=== PATIENT | female | born 1975 | race Caucasian/White ===

== ENCOUNTER 2024-04-22 15:10 | Outpatient (CLI) | payer OTHER, SELFPAY ==
--- OUTSIDE RECORDS SUMMARY | 2024-04-22 15:13 | XMS_ITS | Clinical Summary ---
Author Organization [facility] Address [place], [place] [address] Care Team Providers Care Supply Officer Name Role Phone Unavailable Primary Care Provider Unavailabl e Allergies No known active allergies Medications No known medications Active Problems Problem Noted Date Diagnosed Date Pap smear for cervical cancer screening 06/06/20 21 Overview (07/04/2021): 05/2021 NIL/HPV negative plan: Pap/HPV due 05/2026 Skin lesion 12/15/2011 IBS (irritable bowel syndrome) 12/15/2011 Thyroid nodule 04/10/2008 Overview (04/10/2008): Biopsy 1999 showing benign colloid nodule Environmental allergies 04/10/2008 Overview (04/10/2008): Dust mites. Tried allergy shots not much help Immunizations Name Administration Dates Next Due COVID-19 vaccine ([employer] 30mcg/0.3mL) P F, MDV 12/23/2020,12/02/2020 Hepatitis A (Adult) 03/21/2007 Influenza, IIV3 (Age >=3 years) 03/30/2005 Td (Age >=7 Years) 02/24/2000 Tdap 12/15/2011 Typhoid (injectable) 03/21/2007 Family History Medical History Relation Name Comments Hypertension Father Cancer-breast Maternal Aunt Diabetes Maternal Grandfather Good Health Mother Other Paternal Grandfather cancer Cancer-breast Paternal Grandmother Relation Name Status Comments Father Alive Maternal Aunt Maternal Grandfather Mother Alive Paternal Grandfather Paternal Grandmother Social History Tobacco Use Types Packs/Day Years Used Date Smoking Tobacco: Never Smokeless Tobacco: Never Tobacco Cessation:Counseling Given: Yes Alcohol Use Standard Drinks/Week Comments Yes 2.5 (1 standard drink = 0.6 oz p ure alcohol) glass of wine every weekend Social Connections Answer Date Recorded Frequency of Communication with Friends and Fami ly Not on file 06/07/2021 Financial Resource Strain Answer Date R ecorded Difficulty of Paying Living Expenses Not on file 06/07/2021 Difficulty of Paying Living Expenses Not on file 06/07/2021 Sex and Gender Information Value Date Recorded Sex Assigned at Not on file Gender Identity Not on file Sexual Orientation Not on file Obstetrics History Para Term AB IAB SAB Ectopic Multiple Livin g Live Births 2 2 2 0 0 0 0 0 0 2 2 Date Outcome GA Total Labor Labor/2nd/3rd Weight Sex Type Anes PTL Cheri A1 A5 Name Clin Term Vag Living Term Vag Living Last Filed Vital Signs Vital Sign Reading Time Taken Comments Blood Pressure 135/76 06/07/2021 7:42 AM [facility] Pulse 71 06/07/2021 7:42 AM [employer] Temperature 36.9 ??C (98.4 ??F) 01/04/2016 8:07 AM CD T Respiratory Rate - - Oxygen Saturation 100% 06/07/2021 7:42 AM [employer] Inhaled Oxygen Concentration - - Weight 62.1 kg (137 lb) 06/07/2021 7:42 AM [employer] Height 170.2 cm (5' 7.01) 06/07/2021 7:42 AM CS T Body Mass Index 21.45 06/07/2021 7:42 AM [employer] Plan of Treatment Health Maintenance Due Date Last Done Comments HIV for age 15-65 1990 Hepatitis C screening for age 18-79 1993 Depression screening for age 12+ 02/01/2017 02/02/2016 Colonoscopy through age 75 01/03/2020 Lipids for age 45-75 01/03/2020 Tetanus booster 12/14/2021 12/15/2011, 02/24/2000 BMI (ht and wt on same day) for age 18+ 06/07/2022 06/07/2021, 02/02/2016, 01/04/2016 Mammogram for age 45-75 06/07/2022 06/07/20 21, 04/13/2016, 04/06/2016 COVID-19 vaccine series ( season) 2024 12/23/2020, 12/02/2020 Influenza for age 9-49 02/10/2024 03/30/2005 Pap test for age 21-65 06/07/2026 , 06/07/2021, 02/02/2016, Additional history exists Tdap Completed 12/15/2011 Pneumococcal series for age 6-64 Aged Out No longer eligible based on patient's age to complete this topic Procedures Procedure Name Priority Date/Time Associated Diagnosis Comments XR MAMMO FERNANDA BILAT DIAG Routine 06/07/2021 2:22 PM [employer] Breast lump HPV HIGH RISK Routine 06/07/2021 8:06 AM [employer] Screening for cervical cancer from Last 3 Months or Most Recently Relevant to Health Maintenance Results * XR MAMMO FERNANDA BILAT DIAG (06/07/2021 2:22 PM [employer]) Anatomical Region Laterality Modality BREASTS, Breast Left, Breast Right Bilateral Mammography 06/07/2021 2:46 PM [facility] Impressions 06/07/2021 3:35 PM [employer] Benign fibrocystic changes LEFT breast. No evidence of malignancy. RECOMMENDATIONS: Annual BILATERAL screening mammography. BI-RADS Category 2: Benign Results and recommendations discussed with the patient. Dictated by: Theo Whiteside MD @06/07/2021 2:46:03 PM/CRL:pjt PATIENTS: You will also receive a letter with your examination results in an easy to read format. ??If you have questions about your results, please contact your referring provider. Narrative 06/07/2021 3:35 PM [employer] For Patients: As a result of the 21st Century Cures Act, medical imaging exams and procedure reports are released immediately into your electronic medical record. ??You may view this report before your referring provider. ?? If you have questions, please contact your health care provider. DIAGNOSTIC BILATERAL MAMMOGRAM WITH COMPUTER-AIDED DETECTION WITH TOMOSYNTHESIS, 06/07/2021 LEFT BREAST ULTRASOUND, 06/07/2021 CLINICAL HISTORY: LEFT breast lumps. COMPARISON: 04/13/2016, 04/06/2016. TECHNIQUE: Digital BILATERAL mammogram in four projections. Real-time ultrasound imaging of LEFT breast with imaging documentation. BREAST COMPOSITION: The breasts are heterogeneously dense, which may obscure small masses. ?? FINDINGS: BILATERAL 3D CC and 3D MLO mammogram submitted. Ovoid densities are present within the LEFT breast corresponding to the areas of palpable concern. Mild fibrocystic changes RIGHT breast. No suspicious masses or architectural distortion. Targeted LEFT breast ultrasound performed in the areas of clinical concern. At 6 o'clock 4 cm from the nipple, there is a simple anechoic cyst measuring 3.5 x 3.0 x 2.5 cm. A smaller simple cyst is present at 3 o'clock 4 cm from the nipple measuring 2.0 x 1.6 x 2.0 cm. Saba Hernandez DO MAMMO * HPV HIGH RISK (06/07/2021 8:06 AM [employer]) TYPE 16 Negative Negative 06/09/2021 4:51 PM [employer] [facility] TYPE 18 Negative Negative 06/09/2021 4:51 PM [employer] [facility] OTHER HIGH RISK TYPES Negative Negative 06/09/2021 4:51 PM [employer] [facility] Other (Cervical) Non-Blood / Unknown 06/07/2021 8:06 AM [facility] 06/07/2021 4:07 PM [employer] Narrative [facility] - 06/09/2021 4:51 PM [employer] HPV types 16, 18, 31, 33, 35, 39, 45, 51, 52, 56, 58, 59, 66 and 68 DNA were undetectable or below the pre-set threshold. Methodology: [employer] Chip 4800 HPV Test Saba Hernandez DO MICROBIOLOGY [facility] [address] [place] [address], [place] from Last 3 Months or Most Recently Relevant to Health Maintenance
== END 2024-04-22 15:11 | disposition home or self-care (01) ==
PROVIDERS: PCP Family Medicine; Visit Provider Family Medicine
DX: Z13.1 Encounter for screening for diabetes mellitus (principal); Z13.6 Encounter for screening for cardiovascular disorders
CPT/HCPCS: 80061; 82947

== ENCOUNTER 2024-04-30 07:34 | Outpatient (CLI) | payer OTHER, SELFPAY ==
--- OUTSIDE RECORDS SUMMARY | 2024-04-30 07:36 | XMS_ITS | Clinical Summary ---
Author Organization [facility] Address [place], [place] [address] Care Team Providers Care Technical Programs Manager Name Role Phone Unavailable Primary Care Provider [...] Name Administration Dates Next Due COVID-19 vaccine ([employer] 30mcg/0.3mL) P F, MDV 12/23/2020,12/02/2020 Hepatitis A [...] Comments Blood Pressure 135/76 06/07/2021 7:42 AM [facility] Pulse 71 06/07/2021 7:42 AM [facility] Temperature 36.9 C (98.4 F) 01/04/2016 8:07 AM CDT Respiratory Rate - - Oxygen Saturation 100% 06/07/2021 7:42 AM [facility] Inhaled Oxygen Concentration - - Weight 62.1 kg (137 lb) 06/07/2021 7:42 AM [facility] Height 170.2 cm (5' 7.01) 06/07/2021 7:42 AM CS T Body Mass Index 21.45 06/07/2021 7:42 AM [facility] Plan of Treatment Health Maintenance Due Date [...] FERNANDA BILAT DIAG Routine 06/07/2021 2:22 PM [facility] Breast lump HPV HIGH RISK Routine 06/07/2021 8:06 AM [facility] Screening for cervical cancer from Last 3 Months or Most Recently Relevant to Health Maintenance Results * XR MAMMO FERNANDA BILAT DIAG (06/07/2021 2:22 PM [facility]) Anatomical Region Laterality Modality BREASTS, Breast Left, Breast Right Bilateral Mammography 06/07/2021 2:46 PM [facility] Impressions 06/07/2021 3:35 PM [facility] Benign fibrocystic changes LEFT breast. No evidence of malignancy. RECOMMENDATIONS: Annual BILATERAL screening mammography. BI-RADS Category 2: Benign Results and recommendations discussed with the patient. Dictated by: Theo Whiteside MD @06/07/2021 2:46:03 PM/CRL:nildat PATIENTS: You will also receive a letter with your examination results in an easy to read format. If you have questions about your results, please contact your referring provider. Narrative 06/07/2021 3:35 PM [facility] For Patients: As a result of the 21st Century Cures Act, medical imaging exams and procedure reports are released immediately into your electronic medical record. You may view this report before your referring provider. If you have questions, please contact your health care provider. DIAGNOSTIC BILATERAL MAMMOGRAM WITH COMPUTER-AIDED DETECTION WITH TOMOSYNTHESIS, 06/07/2021 LEFT BREAST ULTRASOUND, 06/07/2021 CLINICAL HISTORY: LEFT breast lumps. COMPARISON: 04/13/2016, 04/06/2016. TECHNIQUE: Digital BILATERAL mammogram in four projections. Real-time ultrasound imaging of LEFT breast with imaging documentation. BREAST COMPOSITION: The breasts are heterogeneously dense, which may obscure small masses. FINDINGS: BILATERAL 3D CC and 3D MLO [...] * HPV HIGH RISK (06/07/2021 8:06 AM [facility]) TYPE 16 Negative Negative 06/09/2021 4:51 PM [facility] TYPE 18 Negative Negative 06/09/2021 4:51 PM [facility] OTHER HIGH RISK TYPES Negative Negative 06/09/2021 4:51 PM [facility] Other (Cervical) Non-Blood / Unknown 06/07/2021 8:06 AM [facility] 06/07/2021 4:07 PM [facility] Narrative [facility] - 06/09/2021 4:51 PM [facility] HPV types 16, 18, 31, 33, 35, 39, 45, 51, 52, 56, 58, 59, 66 and 68 DNA were undetectable or below the pre-set threshold. Methodology: [employer] Chip 4800 HPV Test Saba Hernandez DO [facility]BIOLOGY [facility] [address] [place] [address], [place] from Last 3 Months or Most Recently Relevant to Health Maintenance
--- NOTE | 2024-04-30 07:45 | CRLHL7_ITS ---
For Patients: As a result of the Century Cures Act, medical imaging exams and procedure reports are released immediately into your electronic medical record. You may view this report before your referring provider. If you have questions, please contact your health care provider. BILATERAL SCREENING MAMMOGRAM WITH COMPUTER-AIDED DETECTION AND TOMOSYNTHESIS TECHNIQUE: CC and MLO views were obtained. These mammographic images have been obtained using full-field digital technique. These mammographic images were interpreted with the benefit of computer-aided detection. Breast Tomosynthesis was used in this interpretation. COMPARISON FILM: 06/07/21, 04/13/16, 04/06/16. FINDINGS: The breasts are extremely dense, which lowers the sensitivity of mammography IMPRESSION: There is no radiographic evidence for malignancy. ASSESSMENT: BI-RADS Category 2: Benign RECOMMENDATION: Routine screening mammogram in 1 year. A lay language report of this examination will be provided to the patient. Theo Whiteside M.D. Diagnostic Radiologist [email or web address] LAINA/[email or web address] gordon/Dictated by: Theo Whiteside MD @ 05/01/2024 10:52:00 AM (Electronically Signed)
== END 2024-04-30 07:35 | disposition home or self-care (01) ==
LOC: MAMMO 07:34
PROVIDERS: PCP Family Medicine; Visit Provider Family Medicine
DX: Z12.31 Encounter for screening mammogram for malignant neoplasm of breast (principal); R92.343 Mammographic extreme density, bilateral breasts
CPT/HCPCS: 77063; 77067